=== PATIENT | female | born 1995 | race Hispanic/Latino ===

== ENCOUNTER 2021-07-31 12:11 | Emergency (ER) | payer BC, MEDICAID ==
[~2021-07-31] VITALS: Ht 162.6 cm; Wt 63.5 kg
[2021-07-31] MEDS ORDERED: MECLIZINE HCL 25 MG TABLET PO ONE (12:30)
[2021-07-31] MEDS ORDERED: AMOX/CLAV 875/125MG TAB PO ONE (12:30)
[2021-07-31 12:34] LABS: BASOPHILS % (AUTO) 0.5 % (0.0-5.0); EOSINOPHILS % (AUTO) 1.2 % (0.0-8.0); HEMATOCRIT 41.4 % (36-48); MEAN CORPUSCULAR HEMOGLOBIN 29.1 pg (27.0-33.0); MEAN CORPUSCULAR HGB CONC 31.9 g/dL (32.0-36.0); MEAN CORPUSCULAR VOLUME 91.2 fL (79-99); MONOCYTES % (AUTO) 6.4 % (3.0-13.0); NEUTROPHILS % (AUTO) 66.7 % (40.0-77.0); PLATELET COUNT (AUTO) 244 K/uL (130-400); RED BLOOD CELL COUNT(AUTO) 4.54 MIL/uL (4.00-5.50); RED CELL DISTRIBUTION WIDTH 12.5 % (11.0-15.5); WHITE BLOOD COUNT (AUTO) 8.7 K/uL (4.8-10.8)
[2021-07-31 12:46] LABS: CREATININE 0.7 mg/dL (0.5-1.5); POTASSIUM 3.7 mmol/L (3.5-5.1)
[2021-07-31 12:46] LABS: APPEARANCE,URINE Clear (CLEAR); BILIRUBIN,URINE Negative (NEGATIVE); COLOR,URINE Yellow (YELLOW); GLUCOSE, URINE (UA) Negative (NEGATIVE); KETONES,URINE Negative (NEGATIVE); LEUKOCYTE ESTERASE ,URINE Moderate (NEGATIVE); NITRATE,URINE Negative (NEGATIVE); OCCULT BLOOD,URINE Negative (NEGATIVE); PH,URINE 6.5 (5.0-8.0); PROTEIN,URINE Negative (NEGATIVE); UROBILINOGEN,URINE 0.2 mg/dL (0.2-1.0)
[2021-07-31 12:47] LABS: HCG,QUAL RESULT NEGATIVE (NEGATIVE)
[2021-07-31 12:50] LABS: ALBUMIN 3.5 g/dL (3.5-5.0); BILIRUBIN,TOTAL 0.4 mg/dL (0.2-1.0); TOTAL PROTEIN, SERUM 7.1 g/dL (6.0-8.3)
[2021-07-31 12:53] LABS: AMPHET/METH SCREEN,URINE NEGATIVE (NEGATIVE); BARBITURATE SCREEN, URINE NEGATIVE (NEGATIVE); BENZODIAZEPINES SCREEN,URINE NEGATIVE (NEGATIVE); CANNABINOID SCREEN,URINE NEGATIVE (NEGATIVE); COCAINE SCREEN,URINE NEGATIVE (NEGATIVE); OPIATE SCREEN,URINE NEGATIVE (NEGATIVE); PHENCYCLIDINE SCREEN,URINE NEGATIVE (NEGATIVE)
[2021-07-31] MEDS ORDERED: CEFTRIAXONE 1G VIAL IVP ONE (13:00)
[2021-07-31 13:17] LABS: BACTERIA,URINE Few /HPF (None Seen); RBC,URINE 0-1 /HPF (0-1); YEAST,URINE BUDDING Few /HPF (None Seen)
[2021-07-31] MEDS ORDERED: OSELTAMIVIR PHOSPHATE 75 MG CAP PO SCH (13:30)
[2021-07-31] MEDS ORDERED: FLUC150T PO (13:39)
[2021-07-31] MEDS ORDERED: FEXO1TAB8 PO (13:39)
[2021-07-31] MEDS ORDERED: AMOX-429 PO (13:39)
[2021-07-31] MEDS ORDERED: MECL-226 PO (13:39)
[2021-07-31 13:59] VITALS: BP 100/65
[2021-07-31] MEDS ORDERED: FLUCONAZOLE 100 MG TAB PO ONE (14:00)
== END 2021-07-31 13:58 | disposition home or self-care (01) ==
LOC: EDH 12:11
DX: J10.1 Influenza due to other identified influenza virus with other respiratory manifestations (principal); J32.0 Chronic maxillary sinusitis; N39.0 Urinary tract infection, site not specified; B37.3 Candidiasis of vulva and vagina; Z20.822 Contact with and (suspected) exposure to COVID-19
CPT/HCPCS: 36415; 71045; 80053; 80305; 81001; 81025; 84484; 84703; 85025; 87077; 87088; 87186; 87635; 87804 ×2; 93005; 96374; 99284; C9803; J0696